=== PATIENT | male | born 1980 | race Caucasian/White ===

== ENCOUNTER 2016-09-08 09:58 | Emergency (ER) | payer OTHER ==
[~2016-09-08] VITALS: Ht 177.8 cm; Wt 90.5 kg
[2016-09-08] MEDS ORDERED: GERD PO (10:16)
[2016-09-08] MEDS ORDERED: CHOLESTEROL PO (10:16)
[2016-09-08] MEDS ORDERED: DIABETIC PO (10:16)
[2016-09-08] MEDS ORDERED: HTN PO (10:16)
[2016-09-08 10:27] LABS: GLUCOSE,POINT OF CARE 125 MG/DL (70-110)
[2016-09-08] MEDS ORDERED: IBUPROFEN 800 MG TABLET PO ONE (12:30)
[2016-09-08 13:45] VITALS: BP 139/77
== END 2016-09-08 14:05 | disposition home or self-care (01) ==
LOC: EMS 10:01
DX: S63.613A Unspecified sprain of left middle finger, initial encounter (principal); S63.615A Unspecified sprain of left ring finger, initial encounter; E11.9 Type 2 diabetes mellitus without complications; K21.9 Gastro-esophageal reflux disease without esophagitis; E78.00 Pure hypercholesterolemia, unspecified; I10 Essential (primary) hypertension; X58.XXXA Exposure to other specified factors, initial encounter; Y93.89 Activity, other specified; Y92.89 Other specified places as the place of occurrence of the external cause; Y99.8 Other external cause status
CPT/HCPCS: 82962; 99284